=== PATIENT | male | born 1980 | race Hispanic/Latino ===

== ENCOUNTER 2019-07-09 20:00 | Inpatient (IN) | payer BC ==
[~2019-07-09] VITALS: Ht 180.3 cm; Wt 167.6 kg
[~2019-07-09 20:00] MED LIST: AMLO10TA7 PO; CALC667C10 PO; CEFA2PLA9 IV; FOLI1TAB35 PO; METO100T14 PO; [UNRECOGNIZED DRUG - CODE] IV
[2019-07-09] MEDS ORDERED: NITROGLYCERIN 1GM/1 INCH PACKET TD ONE (21:04)
[2019-07-09] MEDS ORDERED: FUROSEMIDE 10 MG/ML 2ML VIAL ONE (21:04)
[2019-07-09 21:21] LABS: BASOPHILS % (AUTO) 0.7 % (0.0-5.0); EOSINOPHILS % (AUTO) 2.3 % (0.0-8.0); HEMATOCRIT 27.2 % (42-54); LYMPHOCYTES % (AUTO) 8.9 % (21.0-51.0); MEAN CORPUSCULAR HEMOGLOBIN 31.4 pg (27.0-33.0); MEAN CORPUSCULAR HGB CONC 33.2 g/dL (32.0-36.0); MEAN CORPUSCULAR VOLUME 94.3 fL (79-99); MONOCYTES % (AUTO) 6.6 % (3.0-13.0); NEUTROPHILS % (AUTO) 81.5 % (40.0-77.0); PLATELET COUNT (AUTO) 233 K/uL (130-400); RED BLOOD CELL COUNT(AUTO) 2.88 MIL/uL (4.50-6.20); RED CELL DISTRIBUTION WIDTH 15.7 % (11.0-15.5); WHITE BLOOD COUNT (AUTO) 8.6 K/uL (4.8-10.8)
[2019-07-09 21:37] LABS: INR 1.04 (0.85-1.15); PARTIAL THROMBOPLASTIN TIME 30.9 SEC (26.3-35.5); PROTHROMBIN TIME 10.9 SEC (9.6-11.6)
[2019-07-09 21:44] LABS: ALBUMIN 3.7 g/dL (3.5-5.0); BILIRUBIN,TOTAL 0.7 mg/dL (0.2-1.0); TOTAL PROTEIN, SERUM 7.3 g/dL (6.0-8.3)
[2019-07-09 21:46] LABS: CREATININE 15.8 mg/dL (0.5-1.5); POTASSIUM 6.7 mmol/L (3.5-5.1)
[2019-07-09] MEDS ORDERED: IPRATROPIUM/ALBUTEROL SULFATE 3 ML SOLUTION IH ONE (22:07)
[2019-07-09] MEDS ORDERED: SODIUM BICARB 50MEQ 50ML VIAL ONE (22:19)
[2019-07-09] MEDS ORDERED: VANCOMYCIN 1GM+NS 250ML 250 ML IV ONE (23:02)
[2019-07-09] MEDS ORDERED: ZOSYN 3.375GM+NS 50ML 50 ML IV ONE (23:02)
[2019-07-09] MEDS ORDERED: ACETAMINOPHEN 325 MG TAB PO PRN ×2 (23:45)
[2019-07-09] MEDS ORDERED: LACTULOSE 20 GM/30 ML UDCUP PO PRN (23:45)
[2019-07-09] MEDS ORDERED: MORPHINE SULFATE 2 MG/ML 1ML SYG IV PRN (23:45)
[2019-07-09] MEDS ORDERED: ONDANSETRON HCL 4 MG/2 ML VIAL IV PRN (23:45)
[2019-07-09] MEDS ORDERED: SODIUM POLYSTYRENE SULFONATE 15 GM/60 ML ML ONE (23:52)
[2019-07-10] VITALS (7 sets, daily range): BP systolic 126–184; BP diastolic 77–121
[2019-07-10] MEDS: CEFTRIAXONE SODIUM 1 GM IVP SCH ×2 (00:30→20:43)
[2019-07-10] MEDS ORDERED: HYDRALAZINE HCL 20 MG/ML VIAL IV PRN (00:30)
[2019-07-10] MEDS ORDERED: SODIUM CHLORIDE 3% FOR INHALATION 4 ML/AMP VIAL.NEB IH ONE ×3 (00:45→10:38)
[2019-07-10] MEDS: AZITHROMYCIN 500MG+NS 250ML 250 ML IV SCH ×2 (01:00→20:43)
[2019-07-10] MEDS: IPRATROPIUM/ALBUTEROL SULFATE 3 ML SOLUTION IH SCH ×5 (01:07→23:50)
[2019-07-10] MEDS ORDERED: AZITHROMYCIN 500MG+NS 250ML 250 ML IV ONE (01:31)
[2019-07-10] MEDS ORDERED: CEFTRIAXONE SODIUM 1 GM ONE (01:31)
[2019-07-10] MEDS ORDERED: METHYLPREDNISOLONE SOD SUCC 40MG/ML 1ML ONE (01:52)
[2019-07-10 06:00] LABS: BASOPHILS % (AUTO) 0.6 % (0.0-5.0); EOSINOPHILS % (AUTO) 0.8 % (0.0-8.0); HEMATOCRIT 26.8 % (42-54); LYMPHOCYTES % (AUTO) 4.9 % (21.0-51.0); MEAN CORPUSCULAR HEMOGLOBIN 30.9 pg (27.0-33.0); MEAN CORPUSCULAR HGB CONC 33.1 g/dL (32.0-36.0); MEAN CORPUSCULAR VOLUME 93.3 fL (79-99); MONOCYTES % (AUTO) 2.1 % (3.0-13.0); NEUTROPHILS % (AUTO) 91.6 % (40.0-77.0); PLATELET COUNT (AUTO) 224 K/uL (130-400); RED BLOOD CELL COUNT(AUTO) 2.87 MIL/uL (4.50-6.20); RED CELL DISTRIBUTION WIDTH 15.3 % (11.0-15.5); WHITE BLOOD COUNT (AUTO) 8.5 K/uL (4.8-10.8)
[2019-07-10] MEDS: METHYLPREDNISOLONE SOD SUCC 40MG/ML 1ML IVP SCH ×3 (06:00→23:00)
--- NOTE | 2019-07-10 06:10 | NUR ---
MD Dr radha wilson,he called back and notified of consult.dialysis nurse notified.
--- NOTE | 2019-07-10 06:15 | NUR ---
SOLUMEDROL SOLUMEDROL held pt going to be dialysed
[2019-07-10 06:19] LABS: POTASSIUM 6.2 mmol/L (3.5-5.1)
--- NOTE | 2019-07-10 07:36 | NUR ---
DIALYSIS Pt.started on dialysis at bedside,pt sleeping and arousable.States he did not sleep well last night.Pt snoring and wakes up like struggling to breathe,notified [employer] Account Manager while she's rounding this time.Report given to Vikki HAHN.
[2019-07-10] MEDS: FAMOTIDINE 20MG TAB 20 MG TAB PO SCH (09:00)
[2019-07-10] MEDS: HEPARIN SODIUM 5000UNIT/ML 1ML VIAL SQ SCH ×2 (09:00→20:52)
[2019-07-10] MEDS ORDERED: EPOETIN ALFA 10,000 UNIT/ML VIAL SQ SCH (09:30)
[2019-07-10] MEDS ORDERED: AMLO10TA7 PO (10:04)
[2019-07-10] MEDS ORDERED: SEVE800T7 PO (10:04)
[2019-07-10] MEDS ORDERED: LOSA100T2 PO (10:04)
[2019-07-10] MEDS ORDERED: METO100T14 PO (10:04)
[2019-07-10] MEDS ORDERED: CLON0.1T13 PO (10:04)
[2019-07-10] MEDS ORDERED: CLONIDINE HCL 0.1 MG TABLET PO SCH (10:15)
--- NOTE | 2019-07-10 10:15 | NUR ---
DIALYSIS TREATMENT OVER. PT STANDING UP. STATING THAT HE CAN NOT BREATH. NOTED HIS O2 NC OFF. STATED THAT HE IS VERY THIRSTY AND THAT THEY THE DIALYSIS TREATMENT TOOK OFF TO MUCH DIALYSIS FLUID HE IS WANTS SOME WATER... EXPLAIN TO HIM REGARDING WHAT DR. MORGAN HAD EXPLAIN TO HIM, THAT HE NEEDED OTHER DIALYSIS TREATMENT. TOMMORROW FOR REMOVAL OF MORE FLUID. AND THAT IT WAS NOT POSSIBLE TO REMOVE ALL THE FLUID ALL AT ONCE. PT EDUCATION REGARDING INTAKE AND OUTPUT . OF HIS DIALYSIS TREATMENT .REVIEW. THE RISK OF TAKING FLUIDS IN . V/S TAKEN OF 169/93/ HR OF 102, RR OF 18, O2 SAT OF 94% . B/P MEDICATION ENTER . TO BE GIVEN . PER ORDERS OF . CALL LIGHT IN REACH.
--- NOTE | 2019-07-10 10:27 | NUR ---
PT SETTLE DOWN IN BED. HOB UP . STATED THAT HEWAS OKAY . CALL LIGHT IN REACH.. OFFER DIET.
--- NOTE | 2019-07-10 11:42 | NUR ---
DCP CM met with pt discussed dc plans. Pt is independent prior to admission, lives at home w/spouse. Goes to [facility] [place], [place]. Denies any othere equipments/services. Feels safe to go back home, still drive, spouse able to assist w/transportation and needs as necessary. DC plan to home once stable. CM to cont to follow up. Addendum: 07/10/19 at 1146 by CAIO HAYNES LVN CM Amended: Links added.
[2019-07-10] MEDS: SEVELAMER HCL 800 MG TABLET PO SCH ×2 (12:00→17:42)
[2019-07-10] MEDS ORDERED: PHARMACY COMMUNICATION MISC SCH (14:30)
--- NOTE | 2019-07-10 16:46 | NUR ---
RD NOTIFICATION Dx: Pneumonia. Hx: ESRD on HD, HTN. Diet: Renal Dialysis. LBM: 07/09; Tarry stools. BMI is 52.6; classified as Grade III Obesity. Pt sleeping during time of visit, RD will follow up with pt tomorrow to provide Renal Dialysis Medical Nutrition Therapy. RD recommends continue current diet. RD will follow up tomorrow to provide Renal Dialysis Education Material regarding Nutrition recommendations. Recommend GI consult due to pt having Tarry stools. RD will continue to monitor and follow up. Esthela Hobson MS, ARIS Addendum: 07/10/19 at [address] RD Amended: Links added.
[2019-07-10] MEDS: LOSARTAN 100 MG TABLET PO SCH (20:43)
[2019-07-10] MEDS: METOPROLOL TARTRATE 50 MG TAB PO SCH (20:43)
[2019-07-11 03:00] VITALS: BP 164/104
--- NOTE | 2019-07-11 05:00 | NUR ---
STATUS Pt awake,alert.Denies pain or sob.
[2019-07-11 05:15] LABS: BASOPHILS % (AUTO) 0.2 % (0.0-5.0); EOSINOPHILS % (AUTO) 0.1 % (0.0-8.0); HEMATOCRIT 26.3 % (42-54); LYMPHOCYTES % (AUTO) 5.2 % (21.0-51.0); MEAN CORPUSCULAR HEMOGLOBIN 31.7 pg (27.0-33.0); MEAN CORPUSCULAR HGB CONC 33.9 g/dL (32.0-36.0); MEAN CORPUSCULAR VOLUME 93.5 fL (79-99); MONOCYTES % (AUTO) 3.5 % (3.0-13.0); PLATELET COUNT (AUTO) 265 K/uL (130-400); RED BLOOD CELL COUNT(AUTO) 2.82 MIL/uL (4.50-6.20); RED CELL DISTRIBUTION WIDTH 15.9 % (11.0-15.5); WHITE BLOOD COUNT (AUTO) 9.6 K/uL (4.8-10.8)
[2019-07-11] MEDS: METHYLPREDNISOLONE SOD SUCC 40MG/ML 1ML IVP SCH ×2 (05:32→15:03)
[2019-07-11 05:41] LABS: ALBUMIN 3.4 g/dL (3.5-5.0); BILIRUBIN,TOTAL 0.6 mg/dL (0.2-1.0); TOTAL PROTEIN, SERUM 7.1 g/dL (6.0-8.3)
[2019-07-11 05:45] LABS: CREATININE 14.2 mg/dL (0.5-1.5); POTASSIUM 6.9 mmol/L (3.5-5.1)
[2019-07-11] MEDS: IPRATROPIUM/ALBUTEROL SULFATE 3 ML SOLUTION IH SCH ×3 (06:15→18:12)
--- NOTE | 2019-07-11 06:15 | NUR ---
PAGED Dr LEIVA paged thru answering service re critical lab this am.No call back yet.
[2019-07-11 07:00] VITALS: BP 142/77
[2019-07-11] MEDS: SEVELAMER HCL 800 MG TABLET PO SCH ×3 (07:44→17:27)
[2019-07-11] MEDS: FAMOTIDINE 20MG TAB 20 MG TAB PO SCH (07:44)
[2019-07-11 08:11] LABS: HEPATITIS Bs ANTIGEN SCREEN P Negative (Negative)
[2019-07-11] MEDS ORDERED: AMLODIPINE BESYLATE 5 MG TAB PO SCH (09:00)
[2019-07-11] MEDS: LOSARTAN 100 MG TABLET PO SCH (09:47)
[2019-07-11] MEDS: HEPARIN SODIUM 5000UNIT/ML 1ML VIAL SQ SCH (09:48)
[2019-07-11] MEDS: METOPROLOL TARTRATE 50 MG TAB PO SCH (09:49)
--- NOTE | 2019-07-11 10:39 | NUR ---
Per Vikki Lam RN, Dr. Lam signed off.
[2019-07-11 11:00] VITALS: BP 140/67
[2019-07-11 11:09] LABS: APPEARANCE,URINE Cloudy (CLEAR); BILIRUBIN,URINE Negative (NEGATIVE); COLOR,URINE Yellow (YELLOW); GLUCOSE, URINE (UA) TRACE mg/dL (NEGATIVE); KETONES,URINE Negative (NEGATIVE); LEUKOCYTE ESTERASE ,URINE Trace (NEGATIVE); NITRATE,URINE Negative (NEGATIVE); OCCULT BLOOD,URINE Trace (NEGATIVE); PH,URINE >=9.0 (5.0-8.0); PROTEIN,URINE POS 2+ mg/dL (NEGATIVE); UROBILINOGEN,URINE 0.2 mg/dL (0.2-1.0)
[2019-07-11 11:19] LABS: AMORPHOUS SEDIMENT,UR Few /LPF (None Seen); BACTERIA,URINE None Seen /HPF (None Seen); RBC,URINE 0-1 /HPF (0-1); SPERM,URINE Few /HPF (None Seen)
--- NOTE | 2019-07-11 14:58 | NUR ---
Notified by Jeff Deleon RN of completing dialization. 2.2 L removed, post BP 150/85, heart rate 63.
--- NOTE | 2019-07-11 15:16 | NUR ---
Notified Gemini Wheeler NP of critical potassium value after dialysis yesterday of 6.9. No new orders received.
[2019-07-11 16:00] VITALS: BP 160/82
--- NOTE | 2019-07-11 16:39 | NUR ---
RD NOTIFICATION/ FOLLOW UP Dx: Pneumonia. Hx: ESRD on HD, HTN. Diet: Renal Dialysis. LBM: 07/10. Po intake 100% and has good appetite as per pt. Skin intact, non-pitting edema noted. Pt stated he sees a dietitian at the dialysis clinic which he attends. Pt is familiar with foods to limit and avoid. RD provided renal dialysis diet and nutrition education reinforcement. Pt verbalized understanding, materials were provided. RD recommends continue current diet. RD provided diet and nutrition education. RD will follow up as needed. Esthela Hobson MS, RDN Addendum: 07/11/19 at [address] RD Amended: Links added.
--- NOTE | 2019-07-11 16:40 | NUR ---
DIET EDUCATION Pt stated he sees a dietitian at the dialysis clinic which he attends. Pt is familiar with foods to limit and avoid. CRISTY provided renal dialysis diet and nutrition education reinforcement. Pt verbalized understanding, materials were provided. Addendum: 07/11/19 at [address] RD Amended: Links added.
[2019-07-11] MEDS ORDERED: AMOX-426 PO (17:22)
== END 2019-07-11 19:02 | disposition home or self-care (01) | DRG 193 ==
LOC: EDH 20:00 → OBSVTOIN 23:35 → EDHIP 23:35 → 3DH 07-10 01:18
PROVIDERS: ADMIT Hospitalist; ATTEND Hospitalist
PROC: 5A1D70Z Performance of Urinary Filtration, Intermittent, Less than 6 Hours Per Day (ICD-10-PCS; principal; 2019-07-10)
PROC: 5A1D70Z Performance of Urinary Filtration, Intermittent, Less than 6 Hours Per Day (ICD-10-PCS; 2019-07-11)
DX: J18.9 Pneumonia, unspecified organism (principal); N18.6 End stage renal disease; J96.91 Respiratory failure, unspecified with hypoxia; Z68.43 Body mass index [BMI] 50.0-59.9, adult; I12.0 Hypertensive chronic kidney disease with stage 5 chronic kidney disease or end stage renal disease; E66.9 Obesity, unspecified; G47.30 Sleep apnea, unspecified; E87.5 Hyperkalemia; E87.70 Fluid overload, unspecified; Z99.2 Dependence on renal dialysis; Z82.49 Family history of ischemic heart disease and other diseases of the circulatory system; Z91.19 Patient's noncompliance with other medical treatment and regimen
CPT/HCPCS: 36415; 71045; 80048; 80053; 81001; 82550; 82948; 83605; 84132; 84484; 85025; 85610; 85730; 86704; 86706; 87040; 87071; 87077; 87186; 87205; 87340; 87520; 87804; 90935; 93005; 94640; 94664; 99291; G0378; J0456; J0696; J0885; J1644; J1940; J2543; J2920; J3370; J3490

== ENCOUNTER 2020-11-04 22:22 | Inpatient (IN) | payer BC, OTHER ==
[~2020-11-04] VITALS: Ht 177.8 cm; Wt 171.0 kg
[~2020-11-04 22:22] MED LIST changes: +ALBU0.63 IH; +AMLO-258 PO; -AMLO10TA7 PO; -CALC667C10 PO; -CEFA2PLA9 IV; +CLON0.1T13 PO; -FOLI1TAB35 PO; +LOSA100T2 PO; +LOSA100T58 PO; +SEVE800T7 PO; -[UNRECOGNIZED DRUG - CODE] IV
[2020-11-04 23:21] LABS: ABG BASE EXCESS -4.6 mmol/L (-2.0-3.0); ABG HCO3 20.5 mmol/L (21.0-28.0); ABG OXYGEN SATURATION 63.2 % (95.0-99.0); ABG PCO2 38 mmHg (35-48)
[2020-11-04 23:22] LABS: BASOPHILS % (AUTO) 0.4 % (0.0-5.0); EOSINOPHILS % (AUTO) 2.2 % (0.0-8.0); HEMATOCRIT 29.7 % (42-54); LYMPHOCYTES % (AUTO) 9.1 % (21.0-51.0); MEAN CORPUSCULAR HEMOGLOBIN 30.8 pg (27.0-33.0); MEAN CORPUSCULAR HGB CONC 31.3 g/dL (32.0-36.0); MEAN CORPUSCULAR VOLUME 98.3 fL (79-99); MONOCYTES % (AUTO) 5.2 % (3.0-13.0); NEUTROPHILS % (AUTO) 82.7 % (40.0-77.0); PLATELET COUNT (AUTO) 211 K/uL (130-400); RED BLOOD CELL COUNT(AUTO) 3.02 MIL/uL (4.50-6.20); RED CELL DISTRIBUTION WIDTH 14.7 % (11.0-15.5); WHITE BLOOD COUNT (AUTO) 6.7 K/uL (4.8-10.8)
[2020-11-04 23:38] LABS: INR 1.06 (0.85-1.15); PROTHROMBIN TIME 11.5 SEC (9.6-11.6)
[2020-11-04 23:40] LABS: PARTIAL THROMBOPLASTIN TIME 32.5 SEC (26.3-35.5)
[2020-11-04 23:47] LABS: ALANINE AMINOTRANSFERASE 6 U/L (12-78); ASPARTATE AMINOTRANSFERASE 12 U/L (10-37); BILIRUBIN,TOTAL 0.9 mg/dL (0.2-1.0); CARBON DIOXIDE 21 mmol/L (21-32); CHLORIDE 101 mmol/L (101-111); CREATINE KINASE, TOTAL 228 U/L (21-232); GLOMERULAR FILTR. RATE CALC 3 mL/min (>60); GLUCOSE,RANDOM 100 mg/dL (70-105); MYOGLOBIN 393 ng/mL (10-92); SODIUM SERUM 140 mmol/L (136-145); TOTAL PROTEIN, SERUM 7.9 g/dL (6.0-8.3); TROPONIN I < 0.04 ng/mL (0.00-0.06)
[2020-11-05 00:07] LABS: UREA NITROGEN, BLOOD 86 mg/dL (7-18)
[2020-11-05] MEDS ORDERED: CALCIUM GLUC 1GM/10ML VIAL IV ONE (00:53)
[2020-11-05] MEDS ORDERED: SODIUM BICARB 50MEQ 50ML VIAL 50 ML ONE (00:53)
[2020-11-05] MEDS ORDERED: KAYEXALATE 15GM/60ML ONE (00:53)
[2020-11-05] MEDS ORDERED: DEXTROSE 50%-WATER 50 ML DISP.SYRIN IV ONE (00:53)
[2020-11-05] MEDS ORDERED: INSULIN HUMULIN R 100 UNIT/ML 3ML ONE (00:54)
[2020-11-05] MEDS ORDERED: ONDANSETRON 4MG INJ IV PRN (02:15)
[2020-11-05] MEDS ORDERED: NITROGLYCERIN 0.4 MG SL TAB SL PRN (02:15)
[2020-11-05] MEDS ORDERED: DIPHENHYDRAMINE HCL 25 MG CAPSULE PO PRN (02:15)
[2020-11-05] MEDS ORDERED: DiphenhydrAMINE HCL 50 MG/ML VIAL IV PRN (02:15)
[2020-11-05] MEDS ORDERED: MAG/ALUM/SIMETH 30 ML UDCUP PO PRN (02:15)
[2020-11-05] MEDS: CEFTRIAXONE 1G VIAL IVP SCH ×2 (02:15→13:26)
[2020-11-05] MEDS ORDERED: GUAIFENESIN-DM 200/20 MG 10 ML PO PRN (02:15)
[2020-11-05] MEDS ORDERED: ERGOCALCIFEROL (VITAMIN D2) 50,000 UNIT CAPSULE PO ONE (02:15)
[2020-11-05] MEDS ORDERED: LACTULOSE 20 GM/30 ML UDCUP PO PRN (02:15)
[2020-11-05] MEDS ORDERED: CEFTRIAXONE 1G VIAL ONE (03:08)
[2020-11-05] MEDS ORDERED: ERGOCALCIFEROL (VITAMIN D2) 50,000 UNIT CAPSULE ONE (03:08)
[2020-11-05 05:05] LABS: CRP QUANTITATIVE 28.8 mg/L (0.00-9.0)
[2020-11-05] MEDS ORDERED: ALBUTEROL 0.083% 2.5 MG/3 ML INH IH SCH (06:00)
[2020-11-05] MEDS ORDERED: FUROSEMIDE 40MG VIAL IVP SCH (09:00)
[2020-11-05 10:30] VITALS: BP 138/69
[2020-11-05] MEDS ORDERED: LOSA100T58 PO (11:02)
[2020-11-05] MEDS ORDERED: METO-391 PO (11:02)
[2020-11-05] MEDS ORDERED: BUDE10.2 IH (11:04)
[2020-11-05] MEDS ORDERED: ALBUTEROL 0.042% 1.25MG/3ML IH PRN (11:15)
[2020-11-05] MEDS ORDERED: CLONIDINE HCL 0.1 MG TABLET PO PRN (11:15)
[2020-11-05] MEDS: ZINC SULFATE 220 CAPSULE PO SCH (13:25)
[2020-11-05] MEDS: SEVELAMER HCL 800 MG TABLET PO SCH ×2 (13:25→16:48)
[2020-11-05] MEDS: ASCORBIC ACID 500 MG TAB PO SCH (13:25)
[2020-11-05] MEDS: ACETYLCYSTEINE 600 MG CAPSULE PO SCH ×2 (13:25→20:24)
[2020-11-05] MEDS: DOXYCYCLINE HYCLATE 100 MG TABLET PO SCH ×2 (13:25→20:25)
[2020-11-05 16:00] VITALS: BP 145/81
[2020-11-05] MEDS: BUDESONIDE 0.5 MG/2 ML INH IH SCH (18:00)
[2020-11-05 20:24] VITALS: BP 142/79
[2020-11-05] MEDS: LOSARTAN 100 MG TABLET PO SCH (20:24)
[2020-11-05] MEDS: ACETAMINOPHEN 325 MG TAB PO PRN (20:24)
[2020-11-06 00:24] VITALS: BP 158/89
[2020-11-06] MEDS: CEFTRIAXONE 1G VIAL IVP SCH ×2 (01:28→14:15)
[2020-11-06] MEDS: ALBUTEROL INHALER 90MCG/INH IH SCH ×2 (01:29→06:00)
[2020-11-06 04:24] VITALS: BP 156/91
[2020-11-06 05:09] LABS: BASOPHILS % (AUTO) 0.5 % (0.0-5.0); EOSINOPHILS % (AUTO) 2.4 % (0.0-8.0); HEMATOCRIT 26.5 % (42-54); MEAN CORPUSCULAR HEMOGLOBIN 30.2 pg (27.0-33.0); MEAN CORPUSCULAR HGB CONC 31.3 g/dL (32.0-36.0); MEAN CORPUSCULAR VOLUME 96.4 fL (79-99); MONOCYTES % (AUTO) 6.3 % (3.0-13.0); NEUTROPHILS % (AUTO) 81.5 % (40.0-77.0); PLATELET COUNT (AUTO) 184 K/uL (130-400); RED BLOOD CELL COUNT(AUTO) 2.75 MIL/uL (4.50-6.20); RED CELL DISTRIBUTION WIDTH 14.5 % (11.0-15.5); WHITE BLOOD COUNT (AUTO) 6.5 K/uL (4.8-10.8)
[2020-11-06 05:35] LABS: ALBUMIN 3.6 g/dL (3.5-5.0); BILIRUBIN,TOTAL 0.7 mg/dL (0.2-1.0); CRP QUANTITATIVE 31.6 mg/L (0.00-9.0); TOTAL PROTEIN, SERUM 7.3 g/dL (6.0-8.3)
[2020-11-06 05:43] LABS: CREATININE 17.6 mg/dL (0.5-1.5); POTASSIUM 6.2 mmol/L (3.5-5.1)
[2020-11-06] MEDS: BUDESONIDE 0.5 MG/2 ML INH IH SCH (06:00)
[2020-11-06 08:06] VITALS: BP 121/110
[2020-11-06] MEDS: ASCORBIC ACID 500 MG TAB PO SCH ×2 (09:38→14:18)
[2020-11-06] MEDS: ACETYLCYSTEINE 600 MG CAPSULE PO SCH ×2 (09:38→14:18)
[2020-11-06] MEDS: DOXYCYCLINE HYCLATE 100 MG TABLET PO SCH ×2 (09:38→14:19)
[2020-11-06] MEDS: ZINC SULFATE 220 CAPSULE PO SCH ×2 (09:38→14:18)
[2020-11-06] MEDS: METOPROLOL SUCCINATE 50 MG TAB.SR.24H PO SCH (09:39)
[2020-11-06] MEDS: AMLODIPINE 5 MG TAB PO SCH ×2 (09:39→14:18)
[2020-11-06] MEDS: SEVELAMER HCL 800 MG TABLET PO SCH ×3 (09:40→17:21)
[2020-11-06 11:57] VITALS: BP 156/94
[2020-11-06 12:12] LABS: HEPATITIS B CORE IGM Negative (Negative); HEPATITIS Bs ANTIGEN SCREEN P Negative (Negative)
[2020-11-06 16:00] VITALS: BP 117/100
[2020-11-06 20:09] VITALS: BP 155/87
[2020-11-07] MEDS: ACETAMINOPHEN 325 MG TAB PO PRN ×2 (00:16→08:49)
[2020-11-07] MEDS: LOSARTAN 100 MG TABLET PO SCH ×2 (00:20→22:21)
[2020-11-07 00:23] VITALS: BP 169/86
[2020-11-07] MEDS: BUDESONIDE 0.5 MG/2 ML INH IH SCH ×3 (00:26→18:49)
[2020-11-07] MEDS: CEFTRIAXONE 1G VIAL IVP SCH ×2 (02:15→15:14)
[2020-11-07 03:57] LABS: BASOPHILS % (AUTO) 0.3 % (0.0-5.0); EOSINOPHILS % (AUTO) 2.1 % (0.0-8.0); HEMATOCRIT 27.3 % (42-54); LYMPHOCYTES % (AUTO) 8.8 % (21.0-51.0); MEAN CORPUSCULAR HEMOGLOBIN 30.1 pg (27.0-33.0); MEAN CORPUSCULAR HGB CONC 31.1 g/dL (32.0-36.0); MEAN CORPUSCULAR VOLUME 96.8 fL (79-99); MONOCYTES % (AUTO) 5.9 % (3.0-13.0); NEUTROPHILS % (AUTO) 82.2 % (40.0-77.0); PLATELET COUNT (AUTO) 203 K/uL (130-400); RED BLOOD CELL COUNT(AUTO) 2.82 MIL/uL (4.50-6.20); RED CELL DISTRIBUTION WIDTH 14.2 % (11.0-15.5); WHITE BLOOD COUNT (AUTO) 5.8 K/uL (4.8-10.8)
[2020-11-07 04:24] LABS: ALBUMIN 3.7 g/dL (3.5-5.0); BILIRUBIN,TOTAL 0.7 mg/dL (0.2-1.0); CRP QUANTITATIVE 37.2 mg/L (0.00-9.0); POTASSIUM 5.3 mmol/L (3.5-5.1); TOTAL PROTEIN, SERUM 7.3 g/dL (6.0-8.3)
[2020-11-07 04:41] VITALS: BP 146/70
[2020-11-07 04:57] LABS: CREATININE 14.9 mg/dL (0.5-1.5)
[2020-11-07 08:00] VITALS: BP 144/83
[2020-11-07] MEDS: METOPROLOL SUCCINATE 50 MG TAB.SR.24H PO SCH (08:49)
[2020-11-07] MEDS: DOXYCYCLINE HYCLATE 100 MG TABLET PO SCH ×2 (08:49→22:21)
[2020-11-07] MEDS: AMLODIPINE 5 MG TAB PO SCH (08:50)
[2020-11-07] MEDS: SEVELAMER HCL 800 MG TABLET PO SCH ×3 (08:53→16:52)
[2020-11-07] MEDS: ACETYLCYSTEINE 600 MG CAPSULE PO SCH ×2 (08:54→22:21)
[2020-11-07] MEDS: IRON SUCROSE COMPLEX 100 MG in 0.9%NACL 50ML 50 ML IV SCH (10:39)
[2020-11-07] MEDS ORDERED: EPOETIN ALFA-EPBX (ESRD) 10,000 UNIT/ML VIAL SQ SCH (10:40)
[2020-11-07] MEDS ORDERED: COMPOUND IV MISC 1 EACH IVSOLN MISC PRN (10:45)
[2020-11-07 12:00] VITALS: BP 126/70
[2020-11-07 16:00] VITALS: BP 156/76
[2020-11-07 20:36] VITALS: BP 156/90
[2020-11-08 00:22] VITALS: BP 135/92
[2020-11-08] MEDS: ALBUTEROL INHALER 90MCG/INH IH SCH ×2 (00:56→06:13)
[2020-11-08] MEDS: CEFTRIAXONE 1G VIAL IVP SCH ×2 (03:22→14:50)
[2020-11-08 05:15] LABS: BASOPHILS % (AUTO) 0.6 % (0.0-5.0); EOSINOPHILS % (AUTO) 2.4 % (0.0-8.0); HEMATOCRIT 24.7 % (42-54); LYMPHOCYTES % (AUTO) 7.3 % (21.0-51.0); MEAN CORPUSCULAR HEMOGLOBIN 30.1 pg (27.0-33.0); MEAN CORPUSCULAR HGB CONC 31.2 g/dL (32.0-36.0); MEAN CORPUSCULAR VOLUME 96.5 fL (79-99); MONOCYTES % (AUTO) 7.5 % (3.0-13.0); NEUTROPHILS % (AUTO) 81.6 % (40.0-77.0); PLATELET COUNT (AUTO) 189 K/uL (130-400); RED BLOOD CELL COUNT(AUTO) 2.56 MIL/uL (4.50-6.20); RED CELL DISTRIBUTION WIDTH 14.2 % (11.0-15.5); WHITE BLOOD COUNT (AUTO) 6.3 K/uL (4.8-10.8)
[2020-11-08 05:19] VITALS: BP 135/72
[2020-11-08 05:46] LABS: ALBUMIN 3.5 g/dL (3.5-5.0); BILIRUBIN,TOTAL 0.6 mg/dL (0.2-1.0); CRP QUANTITATIVE 31.7 mg/L (0.00-9.0); TOTAL PROTEIN, SERUM 6.8 g/dL (6.0-8.3)
[2020-11-08 05:49] LABS: POTASSIUM 6.1 mmol/L (3.5-5.1)
[2020-11-08] MEDS: BUDESONIDE 0.5 MG/2 ML INH IH SCH ×2 (06:13→07:20)
[2020-11-08 08:24] VITALS: BP 155/79
[2020-11-08] MEDS: AMLODIPINE 5 MG TAB PO SCH (09:05)
[2020-11-08] MEDS: DOXYCYCLINE HYCLATE 100 MG TABLET PO SCH ×2 (09:05→21:50)
[2020-11-08] MEDS: ASCORBIC ACID 500 MG TAB PO SCH (09:05)
[2020-11-08] MEDS: SEVELAMER HCL 800 MG TABLET PO SCH ×3 (09:05→17:03)
[2020-11-08] MEDS: METOPROLOL SUCCINATE 50 MG TAB.SR.24H PO SCH (09:06)
[2020-11-08] MEDS: ACETYLCYSTEINE 600 MG CAPSULE PO SCH ×2 (09:07→21:50)
[2020-11-08] MEDS: ZINC SULFATE 220 CAPSULE PO SCH (09:07)
[2020-11-08] MEDS: IRON SUCROSE COMPLEX 100 MG in 0.9%NACL 50ML 50 ML IV SCH (10:30)
[2020-11-08 12:22] VITALS: BP 186/96
[2020-11-08 16:03] VITALS: BP 149/80
[2020-11-08 20:00] VITALS: BP 168/73
[2020-11-08] MEDS: LOSARTAN 100 MG TABLET PO SCH (21:50)
[2020-11-09] VITALS (7 sets, daily range): BP systolic 139–189; BP diastolic 76–92
[2020-11-09] MEDS: CEFTRIAXONE 1G VIAL IVP SCH ×2 (03:07→14:50)
[2020-11-09 04:57] LABS: BASOPHILS % (AUTO) 0.7 % (0.0-5.0); EOSINOPHILS % (AUTO) 3.3 % (0.0-8.0); HEMATOCRIT 25.8 % (42-54); LYMPHOCYTES % (AUTO) 10.2 % (21.0-51.0); MEAN CORPUSCULAR HEMOGLOBIN 30.1 pg (27.0-33.0); MEAN CORPUSCULAR HGB CONC 31.4 g/dL (32.0-36.0); MEAN CORPUSCULAR VOLUME 95.9 fL (79-99); MONOCYTES % (AUTO) 10.7 % (3.0-13.0); NEUTROPHILS % (AUTO) 74.4 % (40.0-77.0); PLATELET COUNT (AUTO) 198 K/uL (130-400); RED BLOOD CELL COUNT(AUTO) 2.69 MIL/uL (4.50-6.20); RED CELL DISTRIBUTION WIDTH 14.1 % (11.0-15.5); WHITE BLOOD COUNT (AUTO) 4.6 K/uL (4.8-10.8)
[2020-11-09 05:23] LABS: ALBUMIN 3.6 g/dL (3.5-5.0); BILIRUBIN,TOTAL 0.5 mg/dL (0.2-1.0); POTASSIUM 4.7 mmol/L (3.5-5.1); TOTAL PROTEIN, SERUM 7.3 g/dL (6.0-8.3)
[2020-11-09 05:25] LABS: CREATININE 15.4 mg/dL (0.5-1.5)
[2020-11-09] MEDS: ALBUTEROL INHALER 90MCG/INH IH SCH ×3 (06:05→12:45)
[2020-11-09] MEDS: BUDESONIDE 0.5 MG/2 ML INH IH SCH ×2 (06:31→18:22)
[2020-11-09] MEDS: SEVELAMER HCL 800 MG TABLET PO SCH ×3 (08:00→17:45)
[2020-11-09] MEDS: ACETAMINOPHEN 325 MG TAB PO PRN (10:05)
[2020-11-09] MEDS: ACETYLCYSTEINE 600 MG CAPSULE PO SCH ×2 (10:05→20:51)
[2020-11-09] MEDS: AMLODIPINE 5 MG TAB PO SCH (10:06)
[2020-11-09] MEDS: DOXYCYCLINE HYCLATE 100 MG TABLET PO SCH ×2 (10:06→20:51)
[2020-11-09] MEDS: ZINC SULFATE 220 CAPSULE PO SCH (10:06)
[2020-11-09] MEDS: ASCORBIC ACID 500 MG TAB PO SCH (10:06)
[2020-11-09] MEDS: METOPROLOL SUCCINATE 50 MG TAB.SR.24H PO SCH (10:06)
[2020-11-09] MEDS: IRON SUCROSE COMPLEX 100 MG in 0.9%NACL 50ML 50 ML IV SCH (10:08)
[2020-11-09] MEDS: LOSARTAN 100 MG TABLET PO SCH (20:51)
[2020-11-10] MEDS: CEFTRIAXONE 1G VIAL IVP SCH ×2 (01:30→13:36)
[2020-11-10] MEDS: ALBUTEROL INHALER 90MCG/INH IH SCH ×4 (01:31→23:33)
[2020-11-10 04:00] VITALS: BP 136/75
[2020-11-10 05:49] LABS: BASOPHILS % (AUTO) 0.8 % (0.0-5.0); EOSINOPHILS % (AUTO) 3.4 % (0.0-8.0); HEMATOCRIT 23.2 % (42-54); LYMPHOCYTES % (AUTO) 11.2 % (21.0-51.0); MEAN CORPUSCULAR HEMOGLOBIN 30.4 pg (27.0-33.0); MEAN CORPUSCULAR HGB CONC 32.8 g/dL (32.0-36.0); MEAN CORPUSCULAR VOLUME 92.8 fL (79-99); MONOCYTES % (AUTO) 9.3 % (3.0-13.0); NEUTROPHILS % (AUTO) 74.9 % (40.0-77.0); PLATELET COUNT (AUTO) 199 K/uL (130-400); WHITE BLOOD COUNT (AUTO) 5.3 K/uL (4.8-10.8)
[2020-11-10 06:15] LABS: ALBUMIN 3.5 g/dL (3.5-5.0); BILIRUBIN,TOTAL 0.5 mg/dL (0.2-1.0); POTASSIUM 4.6 mmol/L (3.5-5.1); TOTAL PROTEIN, SERUM 6.8 g/dL (6.0-8.3)
[2020-11-10] MEDS: BUDESONIDE 0.5 MG/2 ML INH IH SCH ×2 (06:30→19:18)
[2020-11-10 08:02] VITALS: BP 166/89
[2020-11-10] MEDS: ZINC SULFATE 220 CAPSULE PO SCH (09:11)
[2020-11-10] MEDS: SEVELAMER HCL 800 MG TABLET PO SCH ×3 (09:11→17:00)
[2020-11-10] MEDS: AMLODIPINE 5 MG TAB PO SCH (09:11)
[2020-11-10] MEDS: ASCORBIC ACID 500 MG TAB PO SCH (09:11)
[2020-11-10] MEDS: DOXYCYCLINE HYCLATE 100 MG TABLET PO SCH ×2 (09:11→20:48)
[2020-11-10] MEDS: METOPROLOL SUCCINATE 50 MG TAB.SR.24H PO SCH (09:11)
[2020-11-10] MEDS: ACETYLCYSTEINE 600 MG CAPSULE PO SCH ×2 (09:11→20:48)
[2020-11-10] MEDS: IRON SUCROSE COMPLEX 100 MG in 0.9%NACL 50ML 50 ML IV SCH (10:03)
[2020-11-10 11:38] VITALS: BP 166/82
[2020-11-10 16:00] VITALS: BP 187/97
[2020-11-10 19:00] VITALS: BP 195/104
[2020-11-10] MEDS: LOSARTAN 100 MG TABLET PO SCH (20:48)
[2020-11-11 00:50] VITALS: BP 169/88
[2020-11-11] MEDS: CEFTRIAXONE 1G VIAL IVP SCH ×2 (02:41→14:18)
[2020-11-11 03:45] VITALS: BP 177/98
[2020-11-11 05:11] LABS: BASOPHILS % (AUTO) 0.6 % (0.0-5.0); EOSINOPHILS % (AUTO) 2.6 % (0.0-8.0); HEMATOCRIT 22.7 % (42-54); LYMPHOCYTES % (AUTO) 9.9 % (21.0-51.0); MEAN CORPUSCULAR HEMOGLOBIN 29.6 pg (27.0-33.0); MEAN CORPUSCULAR HGB CONC 32.2 g/dL (32.0-36.0); MEAN CORPUSCULAR VOLUME 91.9 fL (79-99); MONOCYTES % (AUTO) 10.1 % (3.0-13.0); NEUTROPHILS % (AUTO) 76.2 % (40.0-77.0); PLATELET COUNT (AUTO) 192 K/uL (130-400); RED BLOOD CELL COUNT(AUTO) 2.47 MIL/uL (4.50-6.20); RED CELL DISTRIBUTION WIDTH 14.1 % (11.0-15.5); WHITE BLOOD COUNT (AUTO) 5.1 K/uL (4.8-10.8)
[2020-11-11 05:32] LABS: ALBUMIN 3.6 g/dL (3.5-5.0); BILIRUBIN,TOTAL 0.5 mg/dL (0.2-1.0); POTASSIUM 4.7 mmol/L (3.5-5.1); TOTAL PROTEIN, SERUM 6.9 g/dL (6.0-8.3)
[2020-11-11 06:15] LABS: CREATININE 20.5 mg/dL (0.5-1.5)
[2020-11-11] MEDS: BUDESONIDE 0.5 MG/2 ML INH IH SCH ×2 (06:42→18:48)
[2020-11-11] MEDS: SEVELAMER HCL 800 MG TABLET PO SCH ×3 (08:00→17:06)
[2020-11-11 08:30] VITALS: BP 159/93
[2020-11-11] MEDS: ASCORBIC ACID 500 MG TAB PO SCH (10:46)
[2020-11-11] MEDS: METOPROLOL SUCCINATE 50 MG TAB.SR.24H PO SCH (10:46)
[2020-11-11] MEDS: ACETYLCYSTEINE 600 MG CAPSULE PO SCH (10:46)
[2020-11-11] MEDS: DOXYCYCLINE HYCLATE 100 MG TABLET PO SCH (10:46)
[2020-11-11] MEDS: ZINC SULFATE 220 CAPSULE PO SCH (10:47)
[2020-11-11] MEDS: AMLODIPINE 5 MG TAB PO SCH (10:51)
[2020-11-11] MEDS: IRON SUCROSE COMPLEX 100 MG in 0.9%NACL 50ML 50 ML IV SCH (10:57)
[2020-11-11] MEDS: ALBUTEROL INHALER 90MCG/INH IH SCH (11:07)
[2020-11-11 12:10] VITALS: BP 100/76
[2020-11-11 16:00] VITALS: BP 173/91
[2020-11-11] MEDS ORDERED: METO50TA9 PO (18:31)
[2020-11-11] MEDS ORDERED: AMLO5TAB4 PO (18:31)
== END 2020-11-11 19:48 | disposition home or self-care (01) | DRG 189 ==
LOC: EDH 22:22 → EDHIP 22:23 → 4DH 11-05 04:56
PROVIDERS: ADMIT Family Medicine; ATTEND Family Medicine
PROC: 5A1D70Z Performance of Urinary Filtration, Intermittent, Less than 6 Hours Per Day (ICD-10-PCS; principal; 2020-11-05)
PROC: 5A1D70Z Performance of Urinary Filtration, Intermittent, Less than 6 Hours Per Day (ICD-10-PCS; 2020-11-06)
PROC: 5A1D70Z Performance of Urinary Filtration, Intermittent, Less than 6 Hours Per Day (ICD-10-PCS; 2020-11-08)
PROC: 5A09357 Assistance with Respiratory Ventilation, Less than 24 Consecutive Hours, Continuous Positive Airway Pressure (ICD-10-PCS; 2020-11-10)
PROC: 02HV33Z Insertion of Infusion Device into Superior Vena Cava, Percutaneous Approach (ICD-10-PCS; 2020-11-10)
PROC: 5A1D70Z Performance of Urinary Filtration, Intermittent, Less than 6 Hours Per Day (ICD-10-PCS; 2020-11-11)
DX: J96.01 Acute respiratory failure with hypoxia (principal); N18.6 End stage renal disease; I12.0 Hypertensive chronic kidney disease with stage 5 chronic kidney disease or end stage renal disease; Z68.43 Body mass index [BMI] 50.0-59.9, adult; J98.11 Atelectasis; J90 Pleural effusion, not elsewhere classified; E87.5 Hyperkalemia; E11.22 Type 2 diabetes mellitus with diabetic chronic kidney disease; Z99.2 Dependence on renal dialysis; Z20.822 Contact with and (suspected) exposure to COVID-19; J45.909 Unspecified asthma, uncomplicated; E87.70 Fluid overload, unspecified; Z91.19 Patient's noncompliance with other medical treatment and regimen; G47.30 Sleep apnea, unspecified; E66.9 Obesity, unspecified
CPT/HCPCS: 36415; 36600; 71045; 71250; 80053; 80074; 82550; 82728; 82803; 82948; 83605; 83615; 83874; 84132; 84145; 84484; 85025; 85378; 85610; 85730; 86140; 86900; 86901; 87040; 87426; 90935; 93005; 94640; 94760; C1894; G0378; J0610; J0696; J1756; J1815; J3490; J7070; U0003